=== PATIENT | female | born 1960 | race Caucasian/White ===

== ENCOUNTER 2016-11-01 06:40 | Emergency (ER) | payer OTHER, MEDICAID ==
[~2016-11-01 06:40] MED LIST: ESOM40EC PO; FURO-572 PO; [UNRECOGNIZED DRUG - CODE] PO; [UNRECOGNIZED DRUG - CODE] PO
--- NOTE | 2016-11-01 07:20 | NUR ---
55F C/O / "THROBBING" L LEG PAIN WITH SWELLING AND erythema X 8 DAYS; NO DRAINAGE NOTED AND SKIN INTACT TO SITE; DENIES N/V/D; SKIN IS PINK/WARM/DRY; AAOX4 WITH EVEN AND STEADY GAIT; LUNGS CLEAR BL; HR EVEN AND REGULAR; PT DENIES ANY FEVER, CP, SOB, OR COUGH AT THIS TIME; NAD; PATIENT POSITIONED FOR COMFORT; HOB ELEVATED; BEDRAILS UP X2; BED DOWN. ER MD MADE AWARE OF PT STATUS.
--- NOTE | 2016-11-01 07:32 | NUR ---
ER OSEA BY BEDSIDE
--- NOTE | 2016-11-01 07:44 | NUR ---
Pt taken to x-ray via w/c.
--- NOTE | 2016-11-01 07:49 | NUR ---
Pt back from x-ray via w/c.
[2016-11-01] MEDS ORDERED: KETOROLAC 30 MG/ML VIAL IVP ONE (09:15)
[2016-11-01] MEDS ORDERED: LEVOFLOXACIN 500 MG/D5W PREMIX 100 ML IV ONE (09:15)
[2016-11-01] MEDS ORDERED: KETOROLAC 60 MG/2 ML VIAL IM ONE (09:55)
[2016-11-01] MEDS ORDERED: LEVOFLOXACIN 500 MG TAB PO ONE (09:55)
--- NOTE | 2016-11-01 10:22 | NUR ---
Patient discharged with v/s stable. Written and verbal after care instructions given and explained. Patient alert, oriented and verbalized understanding of instructions. Carried with to car. All questions addressed prior to discharge. ID band removed. Patient advised to follow up with PMD. Rx of Levaquin and Keflex given. Patient educated on indication of medication including possible reaction and side effects. Opportunity to ask questions provided and answered.
[2016-11-01 10:23] VITALS: BP 100/60
== END 2016-11-01 10:22 | disposition home or self-care (01) ==
LOC: MED 06:40
DX: L03.116 Cellulitis of left lower limb (principal); Z79.899 Other long term (current) drug therapy
CPT/HCPCS: 73552; 87070; 87075; 87205; 96372; 99285; J1885; J1956; 99284